=== PATIENT | female | born 1985 | race Asian ===

== ENCOUNTER → 2019-09-14 | Outpatient (CLI) | payer OTHER ==
[2019-09-15 03:06] LABS: RUBELLA AB IGG-REFLAB 3.34 index (Immune >0.99)
== END | disposition home or self-care (01) ==
LOC: LABMN 08:43 → EDBD 08:43
PROVIDERS: ATTEND Internal Medicine
DX: Z02.1 Encounter for pre-employment examination (principal)
CPT/HCPCS: 86706; 86735; 86762; 86765; 86787

== ENCOUNTER 2019-11-30 12:40 | Emergency (ER) | payer OTHER ==
[~2019-11-30] VITALS: Ht 162.6 cm; Wt 56.8 kg
[2019-11-30 12:50] VITALS: BP 96/63
[2019-11-30] MEDS ORDERED: ACET-66 PO (12:51)
== END 2019-11-30 13:19 | disposition home or self-care (01) ==
LOC: EMS 12:42
DX: J02.9 Acute pharyngitis, unspecified (principal); R68.83 Chills (without fever); M79.10 Myalgia, unspecified site; Z20.828 Contact with and (suspected) exposure to other viral communicable diseases
CPT/HCPCS: 99283; U0003